=== PATIENT | male | born 1995 | race Caucasian/White ===

== ENCOUNTER 2018-07-29 21:34 | Emergency (ER) | payer OTHER ==
--- NOTE | 2018-07-29 21:53 | EDPHY ---
H & P Stated Complaint: R ARM TINGLING Time Seen by Provider: 07/29/18 21:53 HPI/ROS: HPI CHIEF COMPLAINT: Right Arm Tingling. HISTORY OF PRESENT ILLNESS: A 22-year-old male, otherwise healthy presents emergency room stating that"he is having a heart attack"patient states that he did of rather large amount of cocaine last night. Patient states he snorted a large amount Cocaine. He felt fine. However approximately an hour ago he developed right-sided arm tingling, no weakness. It is located on the medial aspect of his right arm, in a particular area, does not involve the entire right arm. No arm weakness. No chest pain, no shortness of breath. Patient denies any pain in his chest. Denies headache. Denies focal weakness. Does appear anxious. Past Medical History: Denies significant medical history Past Surgical History: Denies significant surgical history Social History: [employer] [facility], reports to me large amount of cocaine last night. Family History: Noncontributory ROS REVIEW OF SYSTEMS: 10 Systems were reviewed and negative with the exception of the elements mentioned in the history of present illness. Exam Constitutional nontoxic no acute distress, triage nursing summary reviewed, vital signs reviewed, awake/alert. Eyes normal conjunctivae and sclera, EOMI, PERRLA. HENT normal inspection, atraumatic, moist mucus membranes, no epistaxis, neck supple/ no meningismus, no raccoon eyes. Respiratory clear to auscultation bilaterally, normal breath sounds, no respiratory distress, no wheezing. Cardiovascular rate normal, regular rhythm, no murmur, no edema, distal pulses normal. Gastrointestinal soft, non-tender, no rebound, no guarding, normal bowel sounds, no distension, no pulsatile mass. Genitourinary no CVA tenderness. Musculoskeletal no midline vertebral tenderness, full range of motion, no calf swelling, no tenderness of extremities, no meningismus, good pulses, neurovascularly intact. Skin pink, warm, & dry, no rash, skin atraumatic. Neurologic awake, alert and oriented x 3, AAOx3, moves all 4 extremities equally, motor intact, sensory intact, CN II-XII intact, normal cerebellar, normal vision, normal speech. Psychiatric normal mood/affect. Heme/Lymph/Immune no lymphadenopathy. Differential Diagnosis: Includes but is not limited to in a particular order acute anxiety attack, panic attack, electrolyte disturbance, cocaine abuse, ACS , acute NV. Medical Decision Making: Plan for this patient IV establishment, IV fluid bolus , 1 mg IV Ativan for anxiety, basic blood work, chest x-ray, EKG, and re- evaluate. Re-evaluation: EKG interpretation by me on record in [facility]. Impression time of EKG 2152, sinus rhythm rate of 64, no signs of acute ischemia on this EK G. No ST elevation no ST depression no significant T-wave abnormalities. No signs of cardiac arrhythmia. 2355: Patient re-evaluated this time resting comfortably has no chest pain no shortness of breath the tingling in his right arm has resolved after IV Ativan 1 mg. No complaints at this time resting comfortably. 0145: Patient this time resting comfortably no chest pain or shortness of breath. No numbness or tingling. Feeling well. No complaints. Eager for discharge Patient's repeat EKG repeat EKG time 1:42 a.m., sinus rhythm rate of 59 without any signs of acute ischemia. 0252: Patient has been sleeping and resting comfortably. No acute distress. Denies chest pain or shortness of breath. Denies numbness or tingling. Would like to go home. 2nd troponin 0.00. 2 nonischemic EKGs. Chest x-ray unremarkable Recommend refrain from doing cocaine in large amounts of alcohol. Return precautions discussed with me understands return emergency room if develops worsening symptoms questions or concerns. Source: Patient - Personal History Current Tetanus Diphtheria and Acellular Pertussis (TDAP): Yes - Medical/Surgical History Hx Asthma: No Hx Chronic Respiratory Disease: No Hx Diabetes: No Hx Cardiac Disease: No Hx Renal Disease: No Hx Cirrhosis: No Hx Alcoholism: No Hx HIV/AIDS: No Hx Splenectomy or Spleen Trauma: No Other PMH: denies - Social History Smoking Status: Current some day smoker Constitutional: Initial Vital Signs Temperature (C) 36.5 C 07/29/18 21:41 Heart Rate 85 07/29/18 21:41 Respiratory Rate 16 07/29/18 21:41 Blood Pressure 134/82 H 07/29/18 21:41 O2 Sat (%) 99 07/29/18 21:41 O2 Delivery Mode Room Air Allergies/Adverse Reactions: No Known Allergies Allergy (Verified 07/29/18 21:45) Home Medications: Medication Instructions Recorded NK [No Known Home Meds] 11/27/14 Medical Decision Making - Diagnostics Imaging Results: Imaging Impressions Chest X-Ray 07/29/18 21:56 Impression: Normal chest x-ray. - Data Points Laboratory Results: Laboratory Results 07/29/18 21:55 07/29/18 21:55 07/30/18 07/30/18 07/29/18 02:34 01:32 22:37 WBC RBC Hgb Hct MCV MCH MCHC RDW Plt Count MPV Neut % (Auto) Lymph % (Auto) [place] % (Auto) Eos % (Auto) Baso % (Auto) Nucleat RBC Rel Count Absolute Neuts (auto) Absolute Lymphs (auto) Absolute Monos (auto) Absolute Eos (auto) Absolute Basos (auto) Absolute Nucleated RBC Immature Gran % Immature Gran # PT INR APTT Sodium Potassium Chloride Carbon Dioxide Anion Gap BUN Creatinine Estimated GFR Glucose Calcium Magnesium Total Bilirubin Conjugated Bilirubin Unconjugated Bilirubin AST ALT Alkaline Phosphatase Creatine Kinase CK-MB (CK-2) Fraction CK-MB (CK-2) % Creatine Kinase Interp POC Troponin I 0.00 ng/mL ng/mL 0.00 ng/mL ng/mL (0.00-0.08) (0.00-0.08) NT-Pro-B Natriuret Pep Total Protein Albumin Lipase Urine Opiates Screen NEGATIVE (NEGATIVE) Urine Barbiturates NEGATIVE (NEGATIVE) Ur Phencyclidine Scrn NEGATIVE (NEGATIVE) Ur Amphetamine Screen NEGATIVE (NEGATIVE) U Benzodiazepines Scrn NEGATIVE (NEGATIVE) Urine Cocaine Screen NON-NEGATIVE H (NEGATIVE) U Marijuana (THC) Screen NON-NEGATIVE H (NEGATIVE) 07/29/18 07/29/18 07/29/18 21:55 21:55 21:55 WBC 6.77 10^3/uL 10^3/uL (3.80-9.50) RBC 4.61 10^6/uL 10^6/uL (4.40-6.38) Hgb 14.4 g/dL g/dL (13.7-17.5) Hct 42.3 % % (40.0-51.0) MCV 91.8 fL fL (81.5-99.8) MCH 31.2 pg pg (27.9-34.1) MCHC 34.0 g/dL g/dL (32.4-36.7) RDW 14.2 % % (11.5-15.2) Plt Count 235 10^3/uL 10^3/uL (150-400) MPV 9.8 fL fL (8.7-11.7) Neut % (Auto) 42.2 % % (39.3-74.2) Lymph % (Auto) 46.5 % H % (15.0-45.0) [place] % (Auto) 8.1 % % (4.5-13.0) Eos % (Auto) 2.1 % % (0.6-7.6) Baso % (Auto) 1.0 % % (0.3-1.7) Nucleat RBC Rel Count 0.0 % % (0.0-0.2) Absolute Neuts (auto) 2.85 10^3/uL 10^3/uL (1.70-6.50) Absolute Lymphs (auto) 3.15 10^3/uL H 10^3/uL (1.00-3.00) Absolute Monos (auto) 0.55 10^3/uL 10^3/uL (0.30-0.80) Absolute Eos (auto) 0.14 10^3/uL 10^3/uL (0.03-0.40) Absolute Basos (auto) 0.07 10^3/uL 10^3/uL (0.02-0.10) Absolute Nucleated RBC 0.00 10^3/uL 10^3/uL (0-0.01) Immature Gran % 0.1 % % (0.0-1.1) Immature Gran # 0.01 10^3/uL 10^3/uL (0.00-0.10) PT 12.3 SEC SEC (12.0-15.0) INR 0.89 (0.83-1.16) APTT 26.3 SEC SEC (23.0-38.0) Sodium 140 mEq/L mEq/L (135-145) Potassium 3.7 mEq/L mEq/L (3.3-5.0) Chloride 101 mEq/L mEq/L (97-110) Carbon Dioxide 27 mEq/l mEq/l (22-31) Anion Gap 12 mEq/L mEq/L (8-16) BUN 18 mg/dL mg/dL (7-23) Creatinine 1.3 mg/dL mg/dL (0.7-1.3) Estimated GFR > 60 Glucose 184 mg/dL H mg/dL (70-100) Calcium 10.0 mg/dL mg/dL (8.5-10.4) Magnesium 2.1 mg/dL mg/dL (1.6-2.3) Total Bilirubin 0.3 mg/dL mg/dL (0.1-1.4) Conjugated Bilirubin 0.1 mg/dL mg/dL (0.0-0.5) Unconjugated Bilirubin 0.2 mg/dL mg/dL (0.0-1.1) AST 50 IU/L IU/L (17-59) ALT 50 IU/L IU/L (21-72) Alkaline Phosphatase 99 IU/L IU/L (38-126) Creatine Kinase 728 IU/L H IU/L (0-224) CK-MB (CK-2) Fraction 2.39 ng/mL ng/mL (0.00-4.55) CK-MB (CK-2) % 0.3 % % (0.0-4.0) Creatine Kinase Interp NEGATIVE (NEGATIVE) POC Troponin I NT-Pro-B Natriuret Pep 23 pg/mL pg/mL (0-125) Total Protein 8.2 g/dL g/dL (6.3-8.2) Albumin 4.7 g/dL g/dL (3.5-5.0) Lipase 241 IU/L IU/L (23-300) Urine Opiates Screen Urine Barbiturates Ur Phencyclidine Scrn Ur Amphetamine Screen U Benzodiazepines Scrn Urine Cocaine Screen U Marijuana (THC) Screen Medications Given: Discontinued Medications Sodium Chloride (Ns) 1,000 mls @ 0 mls/hr IV EDNOW ONE; Wide Open PRN Reason: Protocol Stop: 07/29/18 21:56 Last Admin: 07/29/18 22:09 Dose: 1,000 mls Lorazepam (Ativan Injection) 1 mg IVP EDNOW ONE Stop: 07/29/18 21:57 Last Admin: 07/29/18 22:10 Dose: 1 mg Point of Care Test Results: Chemistry 07/30/18 07/29/18 02:34 22:37 POC Troponin I 0.00 ng/mL ng/mL 0.00 ng/mL ng/mL (0.00-0.08) (0.00-0.08) Departure - Departure Disposition: Home, Routine, Self-Care Clinical Impression: Anxiety, Cocaine abuse Condition: Good Instructions: Cocaine Abuse (ED), Anxiety (ED) Additional Instructions: 1. Return emergency room if he develops worsening symptoms questions or concerns. 2. Recommend not drinking alcohol or doing drugs. Referrals: NONE *PRIMARY CARE P,. [Primary Care Provider] - As per Instructions Stand Alone Forms: School Excuse
[2018-07-29] MEDS ORDERED: NS 1,000 ML IV ONE (21:55)
[2018-07-29] MEDS ORDERED: LORazepam 2 MG/ML INJ IVP ONE (21:56)
[2018-07-29 22:04] LABS: PLATELET COUNT 235 10^3/uL (150-400)
[2018-07-29 22:13] LABS: INR 0.89 (0.83-1.16); PROTIME(PATIENT) 12.3 SEC (12.0-15.0)
[2018-07-29 22:16] LABS: CREATINE KINASE 728 IU/L (0-224)
--- NOTE | 2018-07-29 22:25 | CPEKG ---
Test Reason : OPEN Blood Pressure : / mmHG Vent. Rate : 064 BPM Atrial Rate : 064 BPM P-R Int : 134 ms QRS Dur : 108 ms QT Int : 410 ms P-R-T Axes : 017 -12 018 degrees QTc Int : 423 ms Sinus rhythm Confirmed by Danish Wakefield ([id number]) on 07/29/2018 10:25:29 PM Referred By: Confirmed By:Danish Wakefield
[2018-07-30 03:04] VITALS: BP 119/74
--- NOTE | 2018-07-30 05:48 | CPEKG ---
Test Reason : OPEN Blood Pressure : / mmHG Vent. Rate : 059 BPM Atrial Rate : 057 BPM P-R Int : 133 ms QRS Dur : 104 ms QT Int : 423 ms P-R-T Axes : 027 -17 009 degrees QTc Int : 419 ms Sinus rhythm Borderline left axis deviation Confirmed by Dane Dupont ([id number]) on 07/30/2018 5:47:05 AM Referred By: Confirmed By:Dane Dupont
== END 2018-07-30 03:03 | disposition home or self-care (01) ==
DX: F41.9 Anxiety disorder, unspecified (principal); F14.10 Cocaine abuse, uncomplicated; F17.200 Nicotine dependence, unspecified, uncomplicated; E86.9 Volume depletion, unspecified
CPT/HCPCS: 80305; 84484-PO; 96374; J2060